=== PATIENT | female | born 1990 | race Caucasian/White ===

== ENCOUNTER 2024-08-14 12:24 | Emergency (ER) | payer MEDICAID ==
[~2024-08-14] VITALS: Ht 157.5 cm; Wt 104.3 kg
[2024-08-14 12:59] VITALS: BP 125/83; PULSE 83; RESP 18; TEMP 98.2; O2SAT 97
== END 2024-08-14 13:37 | disposition home or self-care (01) ==
LOC: MED 12:24
DX: R55 Syncope and collapse (principal); R51.9 Headache, unspecified; R03.0 Elevated blood-pressure reading, without diagnosis of hypertension
CPT/HCPCS: 82948; 93005; 99283